=== PATIENT | male | born 1955 | race Caucasian/White ===

== ENCOUNTER → 2019-07-28 | Outpatient (CLI) | payer BC ==
--- NOTE | 2019-07-29 12:36 | US ---
EXAM DESCRIPTION: Renal: Ultrasound. CLINICAL HISTORY: 63 years Male CHRONIC KIDNEY DISEASE COMPARISON: None TECHNIQUE: Transcutaneous scanning: Two-dimensional and Doppler modes. Technically difficult study due to patient body habitus. FINDINGS: Right kidney measures 12.4 x 5.7 x 5.4 cm; mid-renal cortical thickness 13 mm. . Increased cortical echogenicity but less than that of the liver. 4.0 x 3.6 cm cyst mid kidney. No hydronephrosis No echogenic stones. Smooth contour of the kidney with no perinephric fluid. Normal vascularity. Proximal ureter not visualized. Left kidney measures 11.4 x 6.8 x 6.4 cm; mid-renal cortical thickness normal.. Increased echogenicity of the cortex but less than the liver. No hydronephrosis. No echogenic stones. Smooth contour of the kidney with no perinephric fluid. Normal vascularity.. Proximal ureter not visualized.. Urinary bladder not visualized. Abdominal aorta: not measured. IMPRESSION: 1. Normal size of the bilateral kidneys. Increased cortical echogenicity but less than that of the liver. No hydronephrosis or echogenic stones bilaterally. Electronically signed by: Bal Armas MD 07/29/2019 12:34 PM CDT
== END ==
LOC: US 09:23
PROVIDERS: ATTEND Internal Medicine Nephrology
DX: N18.4 Chronic kidney disease, stage 4 (severe) (principal)